=== PATIENT | male | born 1965 | race Caucasian/White ===

== ENCOUNTER 2017-05-19 10:27 | Day surgery (SDC) | payer BC ==
[~2017-05-19 10:27] MED LIST: Metoclopramide 10 MG/2 ML SDV IV PRN; Sodium Chloride 0.9% 1,000 ML IV SCH; Sodium Chloride 0.9% 10 ML Syringe FLUSH PRN
[2017-05-19] MEDS ORDERED: Propofol 200 MG/20 ML SDV ONE (12:35)
--- NOTE | 2017-05-19 17:39 | OR ---
DATE OF OPERATION: 05/19/2017 PREOPERATIVE DIAGNOSIS: Screening colonoscopy. POSTOPERATIVE DIAGNOSIS: Normal colonoscopy. OPERATION: Screening colonoscopy. COMPLICATIONS: None. DRAINS: None. SPECIMENS: None. ESTIMATED BLOOD LOSS: Zero. ANESTHESIA: General propofol anesthesia. INDICATION: Mr. Maldonado is a 51-year-old gentleman here for his primary screening colonoscopy. He is of average risk with no family history. The above-mentioned procedure was explained. The risks, benefits, complications were explained. The patient understood and agreed and was brought to the operating room. DESCRIPTION OF PROCEDURE: The patient was brought to the operating room, placed in the left lateral decubitus position on the operating room table. Satisfactory general propofol anesthesia was administered. We began by performing a rectal examination which was within normal limits. I then placed the endoscope by finger introduction into the rectum and subsequently advanced to the level of the cecum. The cecum was identified by the ileocecal valve, the appendiceal orifice, and cecal strap. The prep was good and after lavage, views were excellent. Careful evaluation of the mucosa was performed on withdrawal. There were no telangiectasias, no polyps, no neoplastic growths, or diverticula. We then performed a retroflexion maneuver within the rectum and this appeared normal. Next, the colon was decompressed and the scope was withdrawn. The patient tolerated procedure well. There were no complications. Instrument count was correct. The patient was woken in the OR and taken to the PACU for recovery. Followup colonoscopy in 10 years. NEHEMIAS/JEROME /[id number]
== END 2017-05-19 14:05 | disposition home or self-care (01) ==
LOC: LB.SDS 10:27
PROVIDERS: ATTEND Surgery
DX: Z12.11 Encounter for screening for malignant neoplasm of colon (principal); I10 Essential (primary) hypertension; E11.9 Type 2 diabetes mellitus without complications; J30.2 Other seasonal allergic rhinitis; Z79.899 Other long term (current) drug therapy
CPT/HCPCS: 45378; 82962; J2704; J7040